=== PATIENT | female | born 1970 | race Caucasian/White ===

== ENCOUNTER 2024-02-09 10:04 | Outpatient (OUT) | payer OTHER, SELFPAY ==
--- NOTE | 2024-02-09 10:13 | MM_ITS ---
Patient Name: GABRIELA ASTUDILLO MR#: [id number] : 1970 Exam Date: 02/09/2024 Ordering Doctor: DR TIM LEVI RADIOLOGY REPORT PROCEDURE: MM TOMOSYNTHESIS SCREENING BI COMPARISON: MG MAMM SCREEN 3D ZAC CAD, 02/11/2022. MG MAMM SCREEN 3D ZAC CAD, 02/09/2021. MG MAMM SCREEN ZAC W CAD, 02/06/2020. MG MAMM ZAC SCRN W CAD DIG, 10/31/2013. INDICATIONS: Screening Calculator Name NCI Breast Cancer Risk Assessment Tool 5 Year Breast Cancer Risk 1.20% Lifetime Breast Cancer Risk 8.50% Personal Breast Cancer No Personal Ovarian Cancer No Treatments None Family Cancers None LOCATION: [facility] BREAST COMPOSITION: There are scattered areas of fibroglandular density. FINDINGS: DIAGNOSTIC CATEGORY 2--BENIGN FINDING: RIGHT BREAST: No significant suspicious finding. Scattered benign-appearing calcifications are present. Numerous benign-appearing oil cysts. No significant change has occurred. LEFT BREAST: No significant suspicious finding. Scattered benign-appearing lymph nodes are present. No significant change has occurred. RECOMMENDATIONS: ROUTINE MAMMOGRAM AND CLINICAL EVALUATION IN 12 MONTHS. PLEASE NOTE: A NORMAL MAMMOGRAM DOES NOT EXCLUDE THE POSSIBILITY OF BREAST CANCER. A CLINICALLY SUSPICIOUS PALPABLE LUMP SHOULD BE BIOPSIED. Dictated by: Ming Hwang M.D. on 02/09/2024 at 11:53 Approved by: Ming Hwang M.D. on 02/09/2024 at 11:58
== END 2024-02-09 10:05 | disposition home or self-care (01) ==
LOC: MAMMO 10:07
PROVIDERS: PCP Family Medicine; Visit Provider Physician Assistant
DX: Z12.31 Encounter for screening mammogram for malignant neoplasm of breast (principal)
CPT/HCPCS: 77063; 77067